=== PATIENT | male | born 1980 | race Caucasian/White ===

== ENCOUNTER 2017-01-09 09:37 | Emergency (ER) | payer SELFPAY ==
[2017-01-09] MEDS ORDERED: NAPROXEN 250 MG TABLET PO ONE (10:05)
[2017-01-09] MEDS ORDERED: LIDOCAINE 5% (700 MG) TRANSDERMAL ADH..PATCH TP ONE (10:05)
[2017-01-09] MEDS ORDERED: ACETAMINOPHEN 325 MG TABLET PO ONE (10:06)
--- NOTE | 2017-01-09 10:16 | ER Document Report ---
ED General - General Chief Complaint: Arm Pain Stated Complaint: NUMBNESS/PAIN ARMS, NECK Notes: Patient is a 36-year-old male without past medical history presents with 4 days of progressively worsening right arm and shoulder pain. States that the pain initially started in his mid back and then migrated to his low neck. He states that now is radiating into his right trapezius and right shoulder and down into his right arm. He notes intermittent associated paresthesias and pain with range of motion of the shoulder. He has not had any focal neurologic deficits. Does describe the pain as a severe, constant, burning, throbbing pain. He has been trying ibuprofen with minimal improvement of the pain. He has not seen a primary care doctor regarding today's concerns. Denies any new or acute injury but does note that he frequently lifts heavy items for his job TRAVEL OUTSIDE OF THE [place] IN LAST 30 DAYS: No - Related Data Allergies/Adverse Reactions: No Known Allergies Allergy (Verified 01/09/17 09:50) Past Medical History - General Information source: Patient - Social History Smoking Status: Current Every Day Smoker Frequency of alcohol use: Occasional Drug Abuse: None Lives with: Spouse/Significant other Family History: Reviewed & Not Pertinent Patient has suicidal ideation: No Patient has homicidal ideation: No Renal/ Medical History: Denies: Hx Peritoneal Dialysis Past Surgical History: Reports: Hx Oral Surgery - Immunizations Hx Diphtheria, Pertussis, Tetanus Vaccination: Yes Review of Systems - Review of Systems Notes: Constitutional: Negative for fever. HENT: Negative for sore throat. Eyes: Negative for visual changes. Cardiovascular: Negative for chest pain. Respiratory: Negative for shortness of breath. Gastrointestinal: Negative for abdominal pain, vomiting or diarrhea. Genitourinary: Negative for dysuria. Musculoskeletal: Negative for back pain. Positive for neck pain and right arm pain Skin: Negative for rash. Neurological: Negative for headaches, weakness or numbness. 10 point ROS negative except as marked above and in HPI. Physical Exam - Vital signs Vitals: Temp Pulse Resp BP Pulse Ox 98.0 F 93 20 148/92 H 96 01/09/17 09:49 01/09/17 09:49 01/09/17 09:49 01/09/17 09:49 01/09/17 09:49 Interpretation: Hypertensive Notes: PHYSICAL EXAMINATION: GENERAL: Well-appearing, well-nourished and in no acute distress. HEAD: Atraumatic, normocephalic. EYES: Pupils equal round and reactive to light, extraocular movements intact, sclera anicteric, conjunctiva are normal. ENT: nares patent, oropharynx clear without exudates. Moist mucous membranes. NECK: Normal range of motion, supple without lymphadenopathy LUNGS: Breath sounds clear to auscultation bilaterally and equal. No wheezes rales or rhonchi. HEART: Regular rate and rhythm without murmurs ABDOMEN: Soft, nontender, normoactive bowel sounds. No guarding, no rebound. No masses appreciated. EXTREMITIES: Normal range of motion, no pitting or edema. No cyanosis. No muscle wasting NEUROLOGICAL: Face symmetric. Tongue protrudes midline. Extraocular motions intact. Pupils are 2 mm and equally reactive. Normal speech, normal gait. 5 out of 5 strength in both the distal and proximal upper and lower extremities bilaterally. Sensation is grossly intact throughout. Finger to nose testing normal. Pronator drift normal. RMU sensory distributional intact. AIN, PIN, IO intact bilaterally. PSYCH: Normal mood, normal affect. SKIN: Warm, Dry, normal turgor, no rashes or lesions noted. Course - Re-evaluation Re-evalutation: 01/09/17 10:06 Presentation is most consistent with likely C6 VII nerve root impingement as patient has pain radiating into his trapezius, into his deltoid, and down to his arm. He has no focal neurologic deficit in either arm. 5 out of 5 biceps and triceps strength. RMU sensory distribution intact. He has full quality control engineering technician strength. AIN, PIN, IO intact. He has no cervical midline tenderness, step- off or deformity. He did not sustain an acute traumatic injury to suggest an acute cervical injury. Likewise, patient's clinical history is not consistent with a central cord syndrome or an anterior cord syndrome as again he has no focal neurologic deficit on exam. Will start the patient on scheduled NSAIDs, Tylenol, local lidocaine, and recommend outpatient physical therapy.At this time will discharge with return precautions and follow-up recommendations. Verbal discharge instructions given a the bedside and opportunity for questions given. Medication warnings reviewed. Patient is in agreement with this plan and has verbalized understanding of return precautions and the need for primary care follow-up in the next 24-72 hours. - Vital Signs Vital signs: Temp Pulse Resp BP Pulse Ox 98.0 F 93 20 148/92 H 96 01/09/17 09:49 01/09/17 09:49 01/09/17 09:49 01/09/17 09:49 01/09/17 09:49 Discharge - Discharge Clinical Impression: Cervical nerve root impingement Condition: Good Disposition: HOME, SELF-CARE Additional Instructions: You likely have a cervical nerve root impingement that is causing your symptoms. The symptoms can last for 6-8 weeks sometimes even longer. The first step in trying to manage this condition is to try conservative medical therapies. You will be started on naproxen 500 mg twice daily. You should also take Tylenol 1000 mg every 6 hours. Apply local lidocaine to the affected areas that are most painful in your neck and shoulder. You should also get into either physical therapy or chiropractic treatment management as soon as possible. Apply heat pad to the neck and shoulders much as you are able. Return to the emergency department immediately if you develop focal weakness or numbness of your arm, difficulty breathing, pass out, or have any other symptoms that are worrisome to you. Prescriptions: Cyclobenzaprine HCl [Flexeril 10 mg Tablet] 10 mg PO TIDP PRN #15 tab PRN Reason: Naproxen 500 mg PO BID #60 tablet Forms: Return to Work
[2017-01-09 10:28] VITALS: BP 147/94
== END 2017-01-09 10:27 | disposition home or self-care (01) ==
LOC: ER 09:37
DX: G54.2 Cervical root disorders, not elsewhere classified (principal); F17.200 Nicotine dependence, unspecified, uncomplicated
CPT/HCPCS: 99283

== ENCOUNTER 2017-01-17 05:57 | Emergency (ER) | payer SELFPAY ==
[2017-01-17] MEDS ORDERED: NORMAL SALINE 1000 ML 1,000 ML IV ONE (07:01)
[2017-01-17] MEDS ORDERED: KETOROLAC TROMETHAMINE INJ/PF 30 MG/1 ML SDV IV ONE (07:01)
[2017-01-17] MEDS ORDERED: DIPHENHYDRAMINE HCL 50 MG/ML VIAL IV ONE ×2 (07:01→09:38)
--- NOTE | 2017-01-17 07:02 | ER Document Report ---
ED Neuro Symptoms/Deficit - General Mode of Arrival: Ambulatory Information source: Patient TRAVEL OUTSIDE OF THE [place] IN LAST 30 DAYS: No - HPI Patient complains to provider of: Other - numbness and pain to the neck and bilateral upper extremities Onset: Other - 10 days ago Context: Other - see notes above Baseline Cognitive: Alert, oriented X 3 Baseline Gait: Walks w/o assistance Alert To: Name/Voice Patient Orientation: Person, Place, Time, Events Altered sensation: LUE, RUE Associated symptoms: Other - see notes above <FLAVIO SILVA - Last Filed: 01/17/17 07:16> <JOSHUA MCFARLANE - Last Filed: 01/17/17 10:28> - General Chief Complaint: Arm Problem Stated Complaint: ARM PAIN Time Seen by Provider: 01/17/17 06:51 Notes: 36 year old male presents to the ED complaining of numbness and shooting pain to the neck and bilateral upper extremities that started 10 days ago. Patient reports that he was seen in the ED on 01/09/2017 for pain and numbness to the right upper extremity and was diagnosed with cervical radiculopathy. 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 Patient was fine after work and the rest of the day. Patient woke up on 01/07/2017 and had a sharp shooting pain to the posterior neck that radiated to the right shoulder. On 01/08/2017 patient began to have sharp shooting pain from his right shoulder to right elbow, but pain in his neck had subsided. 01/09/2017 patient began to have right shoulder and anterior neck (chin to sternum) numbness. Patient came to the ED and was diagnosed with cervical radiculopathy. Today, the patient reports that the sharp shooting pain is now to his bilateral upper extremities and they radiate form his shoulders to his wrists. Patient's pain is exacerbated when lifting his arms, but reports no pain when extending his neck. Patient's reports that since 01/09/2017 the patient's muscles are "loose and deflated". (FLAVIO SILVA) This 36-year-old male patient comes emergency room complaining of severe pain to his right shoulder and arm. He reports packing up a 15,000 pound load on his job in a [employer] on 01/06/2017. There was some discomfort that day and the right neck and shoulder region. It was much worse and extending to the elbow following morning. On 01/09/2017 he noticed numbness to the right lateral deltoid region. He was seen here on 01/09/2017 stating the pain started in his mid back and migrated to his lower neck. It was then going into the right trapezius right shoulder and down the right arm. There was paresthesias and pain with movement at the shoulder. It was a severe constant burning and throbbing pain. He was discharged with a diagnosis of cervical radiculopathy and prescriptions for Flexeril and Naprosyn. He states his symptoms have been getting much worse and now he feels similar pains on the left side. He reports these pains come and go from side to side. He also reports that he had been using a dry heating pad. On exam he is most tender in the right trapezius muscle. When I hyperextend his neck he reports pain to her neck which is more tender to palpate. Hyperextension and rotation of his neck does not increase or cause pain to go down the arms on either side. An MRI was ordered to clarify whether this is all muscular or if there may be some nerve root impingement. The patient also complains of a cough for the past 3 weeks. He is a smoker. ( JOSHUA MCFARLANE) - Related Data Allergies/Adverse Reactions: No Known Allergies Allergy (Verified 01/17/17 06:04) Past Medical History - General Information source: Patient - Social History Smoking Status: Unknown if Ever Smoked Family History: Reviewed & Not Pertinent Renal/ Medical History: Denies: Hx Peritoneal Dialysis Traumatic Medical History: Reports: Hx Fractures Past Surgical History: Reports: Hx Oral Surgery - Immunizations Hx Diphtheria, Pertussis, Tetanus Vaccination: Yes <FLAVIO SILVA - Last Filed: 01/17/17 07:16> Review of Systems - Review of Systems Constitutional: See HPI, Recent illness - Diagnosed with cervical radiculopathy on 01/09/2017 EENT: No symptoms reported Cardiovascular: No symptoms reported Respiratory: No symptoms reported Gastrointestinal: No symptoms reported Genitourinary: No symptoms reported Male Genitourinary: No symptoms reported Musculoskeletal: No symptoms reported Skin: No symptoms reported Hematologic/Lymphatic: No symptoms reported Neurological/Psychological: See HPI, Numbness - right shoulder and anterior neck from chin to sternal area, Other - shooting pain to the bilateral upper extremities from the shoulders to wrists -: Yes All other systems reviewed and negative <FLAVIO SILVA - Last Filed: 01/17/17 07:16> Physical Exam - General General appearance: Alert In distress: None - HEENT Head: Normocephalic, Atraumatic Eyes: Normal Extraocular movements intact: Yes Pupils: PERRL Neck: Other - Tenderness to palpation of the right and left posterior cervical and trapezius muscles. Less on the left than right. Tenderness to palpation of the right anterior neck with extention of the neck.. No: Normal - Respiratory Respiratory status: No respiratory distress - Cardiovascular Rhythm: Regular - Abdominal Inspection: Normal - Back Back: Normal - Extremities General upper extremity: Normal inspection General lower extremity: Normal inspection - Neurological Neuro grossly intact: Yes - Psychological Associated symptoms: Normal affect, Normal mood - Skin Skin Temperature: Warm Skin Moisture: Dry Skin Color: Normal <FLAVIO SILVA - Last Filed: 01/17/17 07:16> Course - Laboratory Result Diagrams: 01/17/17 07:40 01/17/17 07:40 - Diagnostic Test Radiology reviewed: Image reviewed, Reports reviewed - MRI of the cervical spine is completely normal. Chest x-ray is unremarkable. <JOSHUA MCFARLANE - Last Filed: 01/17/17 10:28> - Vital Signs Vital signs: Temp Pulse Resp BP Pulse Ox 97.4 F 104 H 23 H 155/115 H 98 01/17/17 06:05 01/17/17 06:05 01/17/17 06:45 01/17/17 06:41 01/17/17 06:45 - Laboratory Laboratory results interpreted by me: 01/17/17 01/17/17 07:40 07:40 RBC 5.72 H Seg Neutrophils % 34.7 L Lymphocytes % 52.8 H BUN 23 H Creatine Kinase 38 L Discharge <FLAVIO SILVA - Last Filed: 01/17/17 07:16> <JOSHUA MCFARLANE - Last Filed: 01/17/17 10:28> - Discharge Clinical Impression: Trapezius muscle strain Qualifiers: Encounter type: initial encounter Laterality: right Qualified Code(s): S46.787K - Strain of other muscles, fascia and tendons at shoulder and upper arm level, right arm, initial encounter Condition: Stable Disposition: HOME, SELF-CARE Additional Instructions: Muscle Strain: You exam suggests you have strained the trapezius and scupular muscles. This often occurs with strenuous exertion, or during an injury that suddenly stretches the muscle. The seriousness of a strain varies. Some strains heal within days, others cause problems for months. X-rays cannot show a muscle strain. X-rays are taken only if symptoms suggest that a fracture could be present. The usual treatment of a muscle strain is rest and moist heat. Sometimes a sling may be necessary to rest the muscle. The muscle can be used again once pain subsides. Severe strains require a special exercise and stretching program to prevent permanent stiffness and disability. Your doctor will advise you if this will be necessary. Take medications as prescribed. Take 2 Aleve tablets every 12 hours. Use moist heat to the painful muscles. Use your sling to allow the shoulder muscles and neck muscles to relax. Rest as much as possible. Follow-up with a local medical doctor or sports medicine doctor in the next week. RETURN TO THE EMERGENCY ROOM IF ANY NEW OR WORSENING SYMPTOMS. Prescriptions: Cyclobenzaprine HCl [Flexeril 5 mg Tablet] 5 mg PO TID PRN #30 tablet PRN Reason: Oxycodone HCl/Acetaminophen [Percocet 5-325 mg Tablet] 1 tab PO ASDIR PRN #15 tablet PRN Reason: Forms: Special Work Note Scribe Attestation: 01/17/17 10:28 I personally performed the services described in the documentation, reviewed and edited the documentation which was dictated to the scribe in my presence, and it accurately records my words and actions. (JOSHUA MCFARLANE) Scribe Documentation - Scribe Written by Claritza:: Claritza Ruano, 01/17/2017 0727 acting as scribe for :: Julián <FLAVIO SILVA - Last Filed: 01/17/17 07:16>
[2017-01-17] MEDS ORDERED: METHYLPREDNISOLONE INJ 125 MG/2 ML SDV IV ONE (07:38)
[2017-01-17 07:59] LABS: ABSOLUTE BASOPHILS # (AUTO) 0.1 10^3/uL (0.0-0.2); ABSOLUTE EOSINOPHILS # (AUTO) 0.1 10^3/uL (0.0-0.6); ABSOLUTE LYMPHOCYTES (AUTO) 4.3 10^3/uL (0.5-4.7); ABSOLUTE MONOCYTES (AUTO) 0.8 10^3/uL (0.1-1.4); ABSOLUTE NEUT (AUTO) 2.8 10^3/uL (1.7-8.2); EOSINOPHILS % (AUTO) 1.2 % (0-6); HEMATOCRIT 48.2 % (37.9-51.0); HGB HCT DIFFERENCE -0.2; LYMPHOCYTES % (AUTO) 52.8 % (13-45); MEAN CORPUSCULAR HGB CONC 33.2 g/dL (32.0-36.0); MEAN CORPUSCULAR VOLUME 84 fl (80-97); MONOCYTES % (AUTO) 10.3 % (3-13); RED BLOOD COUNT 5.72 10^6/uL (4.35-5.55); RED CELL DISTRIBUTION WIDTH 13.9 % (11.5-14.0); SEGMENTED NEUTROPHILS % (AUTO) 34.7 % (42-78); WHITE BLOOD COUNT 8.2 10^3/uL (4.0-10.5)
[2017-01-17 08:20] LABS: ALANINE AMINOTRANSFERASE 59 U/L (21-72); ALBUMIN 4.1 g/dL (3.5-5.0); ALKALINE PHOSPHATASE 77 U/L (38-126); ANION GAP 9 (5-19); ASPARTATE AMINO TRANSFERASE 37 U/L (17-59); BILIRUBIN,DIRECT 0.4 mg/dL (0.0-0.4); BILIRUBIN,TOTAL 0.5 mg/dL (0.2-1.3); BLOOD UREA NITROGEN 23 mg/dL (7-20); CALCIUM 9.4 mg/dL (8.4-10.2); CARBON DIOXIDE 26 mmol/L (22-30); CHLORIDE 104 mmol/L (98-107); CREATINE KINASE 38 U/L (55-170); CREATININE RESULT 0.83 mg/dL (0.52-1.25); GLUCOSE 91 mg/dL (75-110); POTASSIUM 4.5 mmol/L (3.6-5.0); SODIUM 139.2 mmol/L (137-145)
[2017-01-17] MEDS ORDERED: MORPHINE SULFATE 10 MG/ML INJ IV ONE (09:38)
[2017-01-17 10:32] VITALS: BP 154/112
== END 2017-01-17 10:30 | disposition home or self-care (01) ==
LOC: ER 05:57
DX: S29.012A Strain of muscle and tendon of back wall of thorax, initial encounter (principal); X58.XXXA Exposure to other specified factors, initial encounter; M54.2 Cervicalgia; R20.0 Anesthesia of skin; M25.511 Pain in right shoulder; M25.512 Pain in left shoulder; X50.0XXA Overexertion from strenuous movement or load, initial encounter; Y93.89 Activity, other specified; Y99.0 Civilian activity done for income or pay; R05 Cough
CPT/HCPCS: 99284; 96374; 96375; 36415; 82550; 85025; 80053; 72141; 71020; J1200; J2930; J1885; J2270; J7030